=== PATIENT | male | born 1995 | race African-American/Black ===

== ENCOUNTER 2019-10-16 20:26 | Emergency (ER) | payer MEDICAID ==
[~2019-10-16] VITALS: Ht 175.3 cm; Wt 61.2 kg
[2019-10-16 20:29] VITALS: BP_SYST 139
--- NOTE | 2019-10-16 20:29 | NUR ---
PATIENT BIB IN CUSTODY OF [facility] FOR MED CLEARANCE AND BLOOD ALCOHOL DRAW FOLLOWING A TRAFFIC CALI ON THE CORNER OF [facility]. PATIENT WAS FOUND IN POSESSION OF RX XANAX 30 TABS PRESCRIBED TODAY WITH ONLY 9 TABS LEFT IN BOTTLE. PT REPORTS ONLY TAKING ONE XANAX TAB THIS MORNING. PT DESCRIBES COLLISION LOW SPEED SIDE SWIPE CALI WHILE WEARING [place]. PATIENT DENIES AIRBAGS DEPLOYING. PATIENT STATES HE HIT SIDE OF HIS HEAD BUT DENIES LOSS OF CONSCIOUSNESS AND NAUSEA/VOMITING. NO CHEST PAIN, NO SHORTNESS OF BREATH.
--- NOTE | 2019-10-16 20:29 | NUR ---
Patient to ER bed HALLWAY to gown for evaluation. Side rails up.
--- NOTE | 2019-10-16 20:30 | NUR ---
Written and verbal consent obtained from patient for blood alcohol, name and verified by patient. Disinfected patient's skin with IODINE that did not contain alcohol or other volatile organic compound. Collected the blood from the subject named by venipuncture, in the presence of Officer RUBEN. Used a sterile, dry hypodermic needle and dry vacuum blood collection. Two dry vacuum blood collection was supplied by the officer named above. Withdrew a specimen of blood from RAC of the subject named above. Inverted both blood tubes several times to ensure that the preservative and anticoagulant were thoroughly mixed in the blood specimen. I initialed both blood tube labels for identification. The labeled blood tubes were handed directly to the Officer named above. The blood tubes stopper remained in place while I had possession of the blood tubes. The Officer placed tubes into envelope and sealed it in my presence. Envelope initialed by myself and Officer named above. Patient tolerated well, bandage applied, and bleeding controlled.
--- NOTE | 2019-10-16 20:39 | NUR ---
RAND RICE at bedside examining patient.
[2019-10-16] MEDS ORDERED: NACL 0.9% 1,000 ML IV ONE (20:45)
--- NOTE | 2019-10-16 21:00 | NUR ---
# 18 gauge angiocath placed to LWRIST. Use of asceptic technique. Opsite placed over site. Blood return noted. Blood for lab drawn from site. Flushed with 10 cc of normal saline. No evidence of infiltration noted. Patient tolerated well.
--- NOTE | 2019-10-16 21:29 | NUR ---
Patient ambulated to restroom with steady gait to provide urine sample. Patient was able to walk to and from bathroom without loss of balance. Patient back to [facility] sitting upright.
[2019-10-16 21:47] LABS: BILIRUBIN,URINE NEGATIVE (NEGATIVE); BLOOD, URINE NEGATIVE (NEGATIVE); CLARITY/URINE SL CLOUDY (CLEAR); COLOR,URINE YELLOW (YELLOW); GLUCOSE,URINE NEGATIVE (NEGATIVE); KETONES,URINE NEGATIVE (NEGATIVE); LEUKOCYTE ESTERASE ,URINE NEGATIVE (NEGATIVE); NITRITE, URINE NEGATIVE (NEGATIVE); PROTEIN URINE NEGATIVE (NEGATIVE); UROBILINOGEN,URINE 0.2 (0.2-1.0)
[2019-10-16 21:49] LABS: CALCIUM 9.1 mg/dL (8.4-11.0); CREATININE 0.91 mg/dL (0.55-1.30); POTASSIUM 3.7 mmol/L (3.5-5.1)
--- NOTE | 2019-10-16 22:00 | NUR ---
Patient sitting at bedside resting. IV fluids NS Bolus completed. [place] at bedside.
[2019-10-16 22:03] LABS: ALBUMIN 4.5 g/dL (3.4-4.8); TOTAL BILIRUBIN 0.5 mg/dL (0.0-1.0)
[2019-10-16 22:13] LABS: BARBITURATE, URINE NEGATIVE (NEG <=200)
[2019-10-16 22:14] LABS: BENZODIAZEPINE, URINE POSITIVE (NEG <=150); METHAMPHETAMINES SCREEN,URINE NEGATIVE (NEG <=500); URINE AMPHETAMINE NEGATIVE (NEG <=500); URINE METHADONE NEGATIVE (NEG <=200)
[2019-10-16 22:15] LABS: CANNABINOID, URINE POSITIVE (NEG <=50); COCAINE, URINE NEGATIVE (NEG <=150); PHENCYCLIDINE SCREEN,URINE NEGATIVE (NEG <=25)
[2019-10-16 22:16] LABS: OPIATE, URINE NEGATIVE (NEG <=100); UR TRICYCLIC ANTIDEPRESSANTS NEGATIVE (NEG <=300); URINE OXYCODONE SCREEN NEGATIVE (NEG <=100); URINE PROPOXYPHENE SCREEN NEGATIVE (NEG <=300)
[2019-10-16 22:30] VITALS: BP_SYST 131
--- NOTE | 2019-10-16 22:30 | NUR ---
Patient discharged in custody of [facility] #[id number] with Sergio Weller, given written and verbal discharge instructions and verbalizes understanding. ER MD discussed with patient the results and treatment provided. Patient in stable condition. ID arm band removed. IV catheter removed intact and dressing applied, no active bleeding. No Rx given. Patient educated on pain management and to follow up with PMD. Pain Scale 0/10. Opportunity for questions provided and answered. Medication side effect fact sheet provided.
[2019-10-16 22:58] LABS: BASOPHILS % (AUTO) 0.2 % (0.0-2.0); EOSINOPHILS # (AUTO) 0.3 K/uL (0.0-0.4); EOSINOPHILS % (AUTO) 3.6 % (0.0-4.0); HEMOGLOBIN 15.1 g/dL (14.0-18.0); LYMPHOCYTES # (AUTO) 2.9 K/uL (1.0-5.5); LYMPHOCYTES % (AUTO) 37.7 % (20.5-51.5); MEAN CORPUSCULAR HEMOGLOBIN 28 pg (27-31); MEAN CORPUSCULAR HGB CONC 34 % (32-36); MEAN CORPUSCULAR VOLUME 83 fL (79.0-98.0); MONOCYTES # (AUTO) 0.4 K/uL (0.0-1.0); MONOCYTES % (AUTO) 5.4 % (1.7-9.3); NEUTROPHILS # (AUTO) 4.1 K/uL (1.8-7.7); NEUTROPHILS % (AUTO) 53.1 % (40.0-70.0); PLATELET COUNT (AUTO) 378 K/uL (130-430); RED BLOOD CELL COUNT(AUTO) 5.45 MIL/uL (4.2-6.2); RED CELL DISTRIBUTION WIDTH 12.9 % (9.0-15.0); WHITE BLOOD COUNT (AUTO) 7.7 K/uL (4.8-10.8)
== END 2019-10-16 22:30 ==
LOC: SED 20:26
DX: F19.10 Other psychoactive substance abuse, uncomplicated (principal); F12.90 Cannabis use, unspecified, uncomplicated
CPT/HCPCS: 36415; 80053; 80307; 81003; 85025; 99283; G0482; J7030